=== PATIENT | male | born 1980 | race Caucasian/White ===

== ENCOUNTER 2024-02-28 07:41 | Emergency (ER) | payer OTHER, SELFPAY ==
[2024-02-28 07:52] VITALS: BP 149/96; PULSE 85; RESP 18; TEMP 36.8; O2SAT 98; BMI 19.9
[2024-02-28 07:58] VITALS: BP 149/96; PULSE 85; RESP 18; O2SAT 98
--- NOTE | 2024-02-28 08:27 | CT_ITS ---
WS: [id number] CT FACIAL BONES with contrast HISTORY: R mandibular dental abscess TECHNIQUE: Images obtained from the supraorbital location through the mandible. Soft tissue and bone windows are reviewed. Coronal and sagittal reformats have also been submitted. DLP: 1275.[address] scans at [facility] use at least one of these dose optimization techniques: automated e xposure control; mA and/or kV adjustment per patient size (includes targeted exams where dose is matc hed to clinical indication); or iterative reconstruction. COMPARISON: None available. Contrast: Omnipaque 350; 100 mL. Large multiloculated RIGHT facial abscess centered around the RIGHT mandibular condyle. Abscess is pr edominantly along the medial mandibular condyle measuring 3.6 x 3.3 x 3.6 cm. Abscess extends into th e RIGHT submandibular gland and even the parapharyngeal space contain some inflammatory change. Enlar gement and heterogeneity of the submandibular gland on the RIGHT. There is overlying soft tissue thic kening of the platysmas. Inflammatory changes extend along the RIGHT floor the mouth muscles. There is mild compromise of the oropharynx with enlargement and heterogeneity in the [place] tonsil. Enlarged hyperemic cervical chain lymph nodes. The largest lymph nodes measure up to 13 mm at level 2 A on the RIGHT. Negative orbits and globes. There is a extensive loss of normal cortex involving the third molar on the RIGHT. This abscess is pr obably related to dental caries. Lucency around the root and apical foramen. CT/CT facial bones w con [id number] IMPRESSION: 1. Large multiloculated abscess surrounding the RIGHT mandibular condyle invol ving the medial and lateral pullman car clerk spaces. There is extension to involve th e parapharyngeal fat and the [place] tonsil and the tongue base muscles on the RIGHT. The largest abscess collection is along the medial condyle measuring 3. 6 x 3.3 x 3.6 cm and associated with dental caries of the posterior molar. 2. Marked enlargement and inflammation of the RIGHT submandibular gland with m arked soft tissue edema in the subcutaneous soft tissue and the platysmas. 3. Hyperemic cervical chain lymphadenopathy, level 2 on the RIGHT.
--- NOTE | 2024-02-28 08:27 | CT_ITS ---
WS: [id number] CT NECK WITH CONTRAST HISTORY: R mandibular dental abscess TECHNIQUE: Contiguous 2 mm axial images are performed through the neck with intravenous contrast. Sag ittal and coronal reformats are also submitted. All CT scans at [facility] use at least one o f these dose optimization techniques: automated exposure control; mA and/or kV adjustment per patient size (includes targeted exams where dose is matched to clinical indication); or iterative reconstruc tion. CONTRAST: CONTRAST: Omnipaque 350; 100 mL IV. DLP: 1275.88 mGy.cm COMPARISON: None available. RIGHT facial abscess has been described surrounding the mandibular condyle. Please refer to the facia l bone CT report for further details and dimension of the abscess. This is a multiloculated collectio n in the medial and lateral veterans adviser spaces with extension to the tongue base and the RIGHT [place] tonsil. There is shift of the midline structures and mass effect upon the oropharynx. Mild extensio n into the parapharyngeal fat with edema. Marked enlargement and inflammation of the RIGHT submandibular gland. Thickening of the platysmas mus galo and soft tissue edema. Hyperemic cervical chain lymph nodes. The largest lymph nodes are at level 2A measuring up to 15 mm. Smaller LEFT cervical chain lymph nodes. No osseous abnormalities. Visualized paranasal sinuses and mastoid air cells are normal. Lung apices are clear. CT/CT neck w con* [id number] IMPRESSION: 1. Multiloculated large veterans adviser space abscess described on the facial bone CT report. 2. This abscess is causing inflammation and encroachment into the oropharynx. There is inflammatory change in early inflammation in the RIGHT [place] tonsil and at the tongue base. Inflammatory changes extend into the parapharyngeal fa t. No retropharyngeal abscess. 3. RIGHT cervical chain reactive lymphadenopathy. 4. Enlarged edematous RIGHT parotid gland.
--- NOTE | 2024-02-28 08:29 | ED_ITS ---
HPI - Dental/Oral 2 General: Chief complaint: Dental/Oral Stated complaint: tooth pain Time Seen by Provider: 02/28/24 07:51 Source: patient Mode of arrival: ambulatory History of Present Illness: 43-year-old male presents emergency room with right mandibular molar abscess. He states portion of his wisdom tooth fractured off and had come out he developed a lot of swelling and inflammation in that area he seen a dentist. They started him on pain medications and oral antibiotics states having increasing difficulty including some difficulty with swallowing overnight. He has not had any difficulty breathing he has been able to continue to take liquids. He states he was able to drink water and eat some yogurt this morning. Low-grade subjective fever as well. Currently on clindamycin and tramadol Complaint: tooth pain Location: Tooth # (32) Onset (ago): day(s) Duration: constant Severity: severe Relieving factors: nothing Exacerbating factors: nothing Associated symptoms: Reports fever(s), gum swelling, odynophagia and sore throat; Denies tongue swelling Treatment prior to arrival: other (Oral antibiotics) Review of Systems 2 Const: Reports: fever(s) and chills ENMT: Reports: throat pain, odynophagia, hoarseness and dental pain Card: Denies: chest pain Resp: Denies: dyspnea GI: Denies: abdominal pain : Denies: dysuria, urinary frequency or urinary urgency Musc: Denies: neck pain or back pain Skin/Breast: Denies: rash James/Lymph: Reports: enlarged lymph nodes (Cervical and submandibular on the right) All/Imm: Denies: tongue swelling Physical Exam 2 Const: COMMON NORMALS: no acute distress GENERAL APPEARANCE: cooperative and comfortable ORIENTATION/CONSCIOUSNESS: Yes awake, Yes oriented to person, Yes oriented to place and Yes oriented to time HENMT: COMMON NORMALS: normocephalic, atraumatic and hearing grossly normal bilaterally HEAD & SCALP: normocephalic and atraumatic OTHER: Obvious swelling and tenderness in the right submandibular area extending from the corner of the mandible inferiorly into the submandibular space a few mildly tender cervical lymph nodes noted no supraclavicular nodes Resp: COMMON NORMALS: normal respiratory effort, No retractions, No use of accessory muscles and clear to auscultation bilaterally AUSCULTATION: clear to auscultation bilaterally Cardio: COMMON NORMALS: regular rate, regular rhythm and No murmurs present (Cardio) RATE: regular rate RHYTHM: regular rhythm GI: COMMON NORMALS: Soft to palpation and No hepatosplenomegaly present A USCULTATION: Yes normoactive bowel sounds PALPATION: Yes Soft to palpation, No Tenderness to palpation present (GI), No Guarding due to palpation present (GI) and Yes No hepatosplenomegaly present Extremity: COMMON NORMALS: normal to inspection, capillary refill normal, no clubbing, cyanosis or edema, no calf tenderness and no pedal edema Neuro: SENSORIUM/ORIENTATION: Yes oriented to person, Yes oriented to place and Yes oriented to time Skin: COMMON NORMALS: no rashes or lesions noted GENERAL SKIN EXAM: no rashes or lesions noted Course 2 Vital Signs: Vital signs: Vital Signs Temperature 98.3 F 02/28/24 07:52 Pulse Rate 85 02/28/24 07:58 Respiratory Rate 18 02/28/24 07:58 Blood Pressure 149/96 02/28/24 07:58 Pulse Oximetry 98 02/28/24 07:58 Oxygen Delivery Me thod Room Air 02/28/24 07:58 MDM - Dental/Oral Medical Decision Making Large submandibular mass causing some distortion of airway and pharynx. Causing patient difficulty with swallowing is only able to swallow liquids at this point. Has been given Unasyn is also given pain manage started on IV fluids keep him n.p.o. discussed with oral maxillofacial surgery and uploaded films will transfer ER to ER for surgical evaluation and definitive treatment. Reviewed with patient. Medical Records I reviewed the patient's medical records. Lab Data I reviewed the patient's lab results. 02/28/24 08:59 02/28/24 09:[address] 02/28/24 08:27 IMPRESSION: 1. Large multiloculated abscess surrounding the RIGHT mandibular condyle involving the medial and lateral molded goods controls operator spaces. There is extension to involve the parapharyngeal fat and the [place] tonsil and the tongue base muscles on the RIGHT. The largest abscess collection is along the medial condyle measuring 3.6 x 3.3 x 3.6 cm and associated with dental caries of the posterior molar. 2. Marked enlargement and inflammation of the RIGHT submandibular gland with marked soft tissue edema in the subcutaneous soft tissue and the platysmas. 3. Hyperemic cervical chain lymphadenopathy, level [address] on [address] RIGHT[address] Neck CT 02/28/24 08:27 IMPRESSION: 1. Multiloculated large molded goods controls operator space abscess described on the facial bone CT report. 2. This abscess is causing inflammation and encroachment into the oropharynx. There is inflammatory change in early inflammation in the RIGHT [place] tonsil and at the tongue base. Inflammatory changes extend into the parapharyngeal fat. No retropharyngeal abscess. 3. RIGHT cervical chain reactive lymphadenopathy. 4. Enlarged edematous RIGHT parotid gland. Laboratory Results WBC 19.63 10^3/uL (3.29-11.43) H 02/28/24 08:59 RBC 4.35 10^6/uL (3.85-5.65) 02/28/24 08:59 Hgb 14.10 g/dL (11.27-16.99) 02/28/24 08:59 Hct 41.6 % (37-53) 02/28/24 08:59 MCV 95.6 fl (82-101) 02/28/24 08:59 MCH 32.4 pg (27-33) 02/28/24 08:59 MCHC 33.9 g/dL (30-55) 02/28/24 08:59 RDW 12.0 % (12.1-15.1) L 02/28/24 08:59 Plt Count 337 10^3/cmm (157-399) 02/28/24 08:59 MPV 9.6 fL (7.4-10.4) 02/28/24 08:59 Neut % (Auto) 76.6 % 02/28/24 08:59 Lymph % (Auto) 6.3 % 02/28/24 08:59 [place] % (Auto) 15.7 % 02/28/24 08:59 Eos % (Auto) 0.7 % 02/28/24 08:59 Baso % (Auto) 0.3 % 02/28/24 08:59 Neut # (Auto) 15.05 10^3/uL (1.8-7.7) H 02/28/24 08:59 Lymph # (Auto) 1.2 10^3/uL (0.8-4.8) 02/28/24 08:59 [place] # (Auto) 3.1 10^3/uL (0.2-0.9) H 02/28/24 08:59 Eos # (Auto) 0.1 10^3/uL (0.0-0.8) 02/28/24 08:59 Baso # (Auto) 0.1 10^3/uL (0.0-0.1) 02/28/24 08:59 Nucleated RBC % (auto) 0 % 02/28/24 08:59 Nucleated RBCs # 0.0 /100WBC 02/28/24 08:59 Sodium 137 mmol/L (136-145) 02/28/24 09:15 Potassium 4.3 mmol/L (3.5-5.1) 02/28/24 09:15 Chloride 101 mmol/L (98-107) 02/28/24 09:15 Carbon Dioxide 24 mmol/L (22-29) 02/28/24 09:15 Anion Gap 16.3 (5-19) 02/28/24 09:15 BUN 7 mg/dL (6-20) 02/28/24 09:15 Creatinine 0.7 mg/dL (0.7-1.2) 02/28/24 09:15 GFR Calculation 123.1 mL/min (90-130) 02/28/24 09:15 Glucose 123 mg/dL (65-115) H 02/28/24 09:15 Calculated Osmolality 283 mOsm/kg (285-295) L 02/28/24 09:15 Calcium 8.6 mg/dL (8.5-10.5) 02/28/24 09:15 Total Bilirubin 0.6 mg/dL (0.15-1.2) 02/28/24 09:15 AST 11 U/L (0-40) 02/28/24 09:15 ALT 9 U/L (0-41) 02/28/24 09:15 Alkaline Phosphatase 117 U/L (40-130) 02/28/24 09:15 Total Protein 7.3 g/dL (6.6-8.7) 02/28/24 09:15 Albumin 3.9 g/dL (3.5-5.2) 02/28/24 09:15 Globulin 3.4 g/dL (1.3-4.6) 02/28/24 09:15 All radiology interpretation(s) finalized by discharge Discharge Plan Discharge Condition: Stable Coding Level of Care Code ED Vacuum Cleaner Repair Person for Blair Mcduffie
[2024-02-28 09:13] LABS: Basophils # 0.1 10^3/uL (0.0-0.1); Basophils % 0.3 %; Eosinophils # 0.1 10^3/uL (0.0-0.8); Eosinophils % 0.7 %; Hematocrit 41.6 % (37-53); Lymphocytes # 1.2 10^3/uL (0.8-4.8); Lymphocytes % 6.3 %; Mean Corpuscular HGB Conc 33.9 g/dL (30-55); Mean Corpuscular Hemoglobin 32.4 pg (27-33); Mean Corpuscular Volume 95.6 fl (82-101); Mean Platelet Volume 9.6 fL (7.4-10.4); Monocytes # 3.1 10^3/uL (0.2-0.9); Monocytes % 15.7 %; Neutrophils # 15.05 10^3/uL (1.8-7.7); Neutrophils % 76.6 %; Nucleated Red Blood Cells % 0 %; Platelet Count 337 10^3/cmm (157-399); Red Blood Count 4.35 10^6/uL (3.85-5.65); White Blood Count 19.63 10^3/uL (3.29-11.43)
[2024-02-28] MEDS: iohexol 350 mg/mL 500 mL Btl (per mL) IV (09:35)
[2024-02-28 09:39] LABS: Alanine Aminotransferase 9 U/L (0-41); Albumin Level 3.9 g/dL (3.5-5.2); Alkaline Phosphatase 117 U/L (40-130); Anion Gap 16.3 (5-19); Aspartate Amino Transferase 11 U/L (0-40); Blood Urea Nitrogen 7 mg/dL (6-20); Calcium 8.6 mg/dL (8.5-10.5); Carbon Dioxide 24 mmol/L (22-29); Chloride 101 mmol/L (98-107); Creatinine Clr Calc Pharmacy 128.7829; Globulin 3.4 g/dL (1.3-4.6); Glomerular Filtration Rate 123.1 mL/min (90-130); Glucose 123 mg/dL (65-115); Osmolality Calculated 283 mOsm/kg (285-295); Potassium 4.3 mmol/L (3.5-5.1); Sodium 137 mmol/L (136-145); Total Bilirubin 0.6 mg/dL (0.15-1.2); Total Protein 7.3 g/dL (6.6-8.7)
[2024-02-28] MEDS: ampicillin-sulbactam 3 GM in sodium chloride 0.9% (plus) 50 ML IV (09:45)
[2024-02-28] MEDS: morphine 4 mg/mL SDV 1 mL IVP ×2 (10:55→14:25)
[2024-02-28] MEDS: ondansetron 2 mg/ML SDV 2 mL 4 MG IVP (10:55)
[2024-02-28] MEDS: sodium chloride 0.9% 1,000 ML 999 ML IV (10:57)
[2024-02-28] MEDS: sodium chlor 0.9% + KCl 20 mEq 20 MEQ/1,000 ML BAG 125 MEQ IV (11:27)
[2024-02-28 14:26] VITALS: BP 129/71; PULSE 82; O2SAT 100
== END 2024-02-28 15:05 ==
PROVIDERS: Emergency Provider Family Medicine
DX: K04.7 Periapical abscess without sinus (principal)
CPT/HCPCS: 36415; 70487; 70491; 80053; 85025; 87040; 96374; 96375; 96376; 99285; J0295; J2270; J2405; J3480; J7030; Q9967